=== PATIENT | female | born 1950 | race African-American/Black ===

== ENCOUNTER → 2017-01-16 | Outpatient (CLI) | payer BC, MEDICARE ==
[~2017-01-16] MED LIST: ALBUTEROL17 GM INH; BENZONATATE PO; PHENERGAN PO; PHENERGAN W/CO120 ML PO; ZITHROMAX PO; ZYRTEC PO
--- NOTE | ~2017-01-16 | CT2 ---
[facility] A Service of [facility] RADIOLOGY TEXT RESULTS PATIENT: CHAR[facility] UNIT #: [id number] AGE: [address]: Nayana Granda MD SEX: F ORDER DR: [id number] [facility] [address] [place], [place] [address] [id number] O MR#: [id number] Acc #: [id number] NAME: CHARLEY SHARMA : 1950 SEX: F STUDY DATE/TIME: 01/16/2017 10:37 UNIT: [facility]AT ROOM: STUDY DESCRIPTION: CT Abd and Pelv W Cont Attending Physician: Nayana Granda M.D. Referring Physician: Nayana Granda M.D. Ordering Physician: Nayana Granda M.D. Primary Care Physician: Nayana Granda M.D. MEDICAL IMAGING REPORT This report is preliminary unless electronic signature is present EXAM CT abdomen and pelvis with contrast 01/16/2017 HISTORY 66-year-old female with worsening left lower quadrant abdominal pain for the last 3 months. COMPARISON None TECHNIQUE Helical scan performed through the abdomen and pelvis following administration of oral and IV contrast. Coronal and sagittal reformatted images. This CT exam was performed with one or more of the following radiation dose reduction techniques: automatic exposure control, adjustment of mA and/or kV according to patient size, and iterative reconstruction. FINDINGS Visualized lung bases are unremarkable. The liver, spleen, pancreas, gallbladder, both adrenal glands, and both kidneys are within normal limits. IVC filter. 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 Abdominal aorta normal in course and caliber without dissection. Small bowel is unremarkable without obstruction. Appendix is normal. Colon unremarkable. No free fluid or free air. The urinary bladder is unremarkable. Uterus appears surgically absent. No free pelvic fluid. No acute bony abnormality. [facility] A Service of [facility] RADIOLOGY TEXT RESULTS PATIENT: CHARLEY SHAR[facility] UNIT #: [id number] AGE: [address]: Nayana Granda MD SEX: F ORDER DR: IMPRESSION 1. No acute abdominal or pelvic findings. 2. Normal appendix. 3. IVC filter. 4. Hysterectomy. Dictated by... Mohsen Espinoza M.D. THIS IS AN ELECTRONICALLY VERIFIED REPORT Mohsen Espinoza M.D. at 01/17/2017 5:00 PM TING/malena TD: 01/16/2017 13:26 JOB #: [id number] MEDICAL IMAGING REPORT Page 1 of 1 COPY
[2017-01-16 10:11] LABS: POC - CREATININE 1.18 mg/dL (0.44-1.03)
== END | disposition home or self-care (01) ==
LOC: CCAT 08:43
PROVIDERS: Internal Medicine
DX: R10.32 Left lower quadrant pain (principal); G89.29 Other chronic pain; Z95.828 Presence of other vascular implants and grafts; Z90.710 Acquired absence of both cervix and uterus
CPT/HCPCS: 74177; 82565; Q9967